=== PATIENT | female | born 1960 | race Caucasian/White ===

== ENCOUNTER → 2018-09-07 | Outpatient (CLI) | payer BC ==
[~2018-09-07] MED LIST: ADULT SUPPOSIT1 EACH RC; ARTIFICIAL TEA1 EACH OPHTHALMIC; BAYER CHEWABLE81 MG PO; BRILINTA90 MG PO; FLONASE 0.05%50 MCG NASAL; HAIR, SKIN & N1 EAC2 PO; IBUPROFEN 800800 M1 PO; LIPITOR 20 MG T20 M1 PO; LISINOPRIL5 MG PO; LOPRESSOR25 PO; MACROBID 100 M100 M1 PO; MIMVEY 1-0.5 M1 EACH PO; NEXIUM 40 MG CA40 M1 PO; NICOTINE TRANSD14 M1 TRANSDERM; NITROGLYCERIN0.4 MG SUBLING; PRILOSEC40 MG PO; SALONPAS; SUDAFED 12 HOU120 MG PO; SUPHEDRIN30 MG PO; VIACTIV SOFT C1 EACH PO
[2018-09-07 16:59] LABS: CK-MB MASS 1.4 ng/mL (<0.5-3.6); TROPONIN-I LEVEL <0.06 ng/mL (<0.06)
== END ==
LOC: M.LAB 16:20
PROVIDERS: Family Medicine
DX: M25.511 Pain in right shoulder (principal); R07.89 Other chest pain

== ENCOUNTER 2019-06-20 06:40 | Emergency (ER) | payer BC ==
[~2019-06-20] VITALS: Ht 165.1 cm; Wt 84.4 kg
[2019-06-20] MEDS ORDERED: FISH OIL 1,0001 EAC9 PO (06:53)
[2019-06-20] MEDS ORDERED: PROBIOTIC1 EAC7 PO (06:54)
[2019-06-20] MEDS ORDERED: DORYX MPC120 MG PO (06:55)
[2019-06-20 07:00] LABS: ABSOLUTE BASOPHILS 0.1 thou/uL (0.0-0.2); ABSOLUTE EOSINOPHILS 0.1 thou/uL (0.0-0.7); ABSOLUTE LYMPHOCYTES 2.6 thou/uL (0.8-5.3); ABSOLUTE MONOCYTES 0.5 thou/uL (0.0-1.2); ABSOLUTE NEUTROPHILS 2.5 thou/uL (1.6-8.1); EOSINOPHILS 2.6 %; HEMATOCRIT 28.3 % (37.0-47.0); LYMPHOCYTES 44.9 %; MCH 33.6 pg (26.0-34.0); MCHC 35.3 g/dL (28.0-37.0); MCV 95.2 fL (80.0-100.0); MONOCYTES 8.7 %; MPV 8.4 fl. (7.2-11.1); NUCLEATED RBCS 0 /100WBC; PLATELET COUNT* 398 thou/uL (150-400); POLYS 42.8 %; RBC 2.97 mil/uL (4.20-5.00); RDW-CV 15.5 % (10.5-14.5); WBC 5.7 thou/uL (4.0-11.0)
[2019-06-20 07:09] LABS: CALCIUM 9.8 mg/dL (8.5-10.1); CREATININE 0.9 mg/dL (0.6-1.3); POTASSIUM 4.1 mmol/L (3.5-5.1)
[2019-06-20 07:12] LABS: PROTIME 10.3 Seconds (9.20-11.50)
[2019-06-20 07:19] LABS: ALBUMIN 3.4 g/dL (3.4-5.0); TOTAL BILIRUBIN 0.5 mg/dL (<0.1-1.0); TOTAL PROTEIN 7.7 g/dL (6.4-8.2)
[2019-06-20 07:59] LABS: URINE BILIRUBIN NEGATIVE (Negative); URINE BLOOD NEGATIVE (Negative); URINE CLARITY CLEAR; URINE COLOR YELLOW; URINE GLUCOSE-RANDOM NEGATIVE (Negative); URINE KETONES NEGATIVE (Negative); URINE LEUKOCYTES-REFLEX NEGATIVE (Negative); URINE NITRITE-REFLEX NEGATIVE (Negative); URINE PROTEIN NEGATIVE (Negative); URINE SPECIFIC GRAVITY 1.015 (1.005-1.030); URINE UROBILINOGEN 0.2 E.U./dl (0.2-1.0)
--- NOTE | 2019-06-20 09:12 | EKG ---
[place] [address] ELECTROCARDIOGRAM REPORT Name: TASHIA FISH Room: [facility]#: [id number] Admission: 06/20/19 Attend Phys: Discharge: Date of : 64 Report #: [id number] THIS REPORT FOR: //name// [facility] ED Test Date: 2019-06-20 Test Time: 06:48:34 Pat Name: TASHIA FISH Department: Room: Gender: F Nursery Worker: ERNESTINA : 1960 Requested By: Tona Johnston Order Number: [id number] MD: Toro Michaud Measurements Intervals [place] Rate: 87 P: 33 VT: 153 QRS: 51 QRSD: 84 T: 39 QT: 367 QTc: 442 Interpretive Statements Sinus rhythm Compared to ECG 12/25/2013 19:45:31 ST (T wave) deviation no longer present Electronically Signed On 06-20-2019 9:12:05 TELECOM BILLING ANALYST by Toro Michaud [email or web address] <ELECTRONICALLY SIGNED> By: Toro Michaud MD, [facility] 06/20/19911 [phone] Toro Michaud MD, FACC /EPI
[2019-06-20 10:42] VITALS: BP 128/79
== END 2019-06-20 10:43 | disposition home or self-care (01) ==
LOC: M.ERS 06:40
PROVIDERS: Emergency Medicine
DX: J06.9 Acute upper respiratory infection, unspecified (principal); R07.9 Chest pain, unspecified; I10 Essential (primary) hypertension; E78.00 Pure hypercholesterolemia, unspecified; F17.210 Nicotine dependence, cigarettes, uncomplicated; Z98.51 Tubal ligation status; Z95.5 Presence of coronary angioplasty implant and graft; Z88.6 Allergy status to analgesic agent

== ENCOUNTER → 2019-07-26 | Outpatient (CLI) | payer OTHER ==
[~2019-07-26] MED LIST changes: +DORYX MPC120 MG PO; +FISH OIL 1,0001 EAC9 PO; +PROBIOTIC1 EAC7 PO
--- NOTE | ~2019-07-26 | HEMONC ---
[address] [address] HEMATOLOGY ONCOLOGY NOTE Name: TASHIA GARBER Room: [facility]..#: [id number] Admission: 07/26/19 Attend Phys: Juju De La Torre MD Discharge: Date of : 64 Report #: [id number] THIS REPORT FOR: //name// CC: Juju Hillman DATE OF SERVICE: 07/26/2019 PRIMARY CARE PHYSICIAN: Saulo Hillman DO REASON FOR CONSULTATION: Progressive anemia. SUBJECTIVE: This is a 59-year-old female who has been evaluated today because of 2 months' duration of fatigue and progressive shortness of breath with joint aches with no weight loss. The patient denies any epistaxis or vaginal bleeding or blood in the stool. She is scheduled for EGD and colonoscopy tomorrow; however, reviewing her blood count revealed hemoglobin dropped from 9.3-8.9 with a normocytic MCV of 97.5. Her white blood cells and platelet count has been within normal range. No evidence of renal failure or liver failure. The patient denies any other symptoms or events that triggered her progressive symptoms in the last couple of months. She did not have any recent travel. The patient denies any new medications. No prior chemoradiation. REVIEW OF SYSTEMS: All systems were reviewed. It was negative except the above. PAST MEDICAL HISTORY: Hypertension, coronary artery disease, dyslipidemia. PAST SURGICAL HISTORY: PCI with a stent placement in 2013. SOCIAL HISTORY: She used to be an active smoker, 1 pack between the age of 18 and 54. She drinks alcohol occasionally. ALLERGIES: None known allergies. MEDICATIONS: Aspirin 81 mg p.o. daily, Lipitor 40 mg p.o. daily, Nexium 40 mg p.o. daily, losartan 100 mg p.o. daily. PHYSICAL EXAMINATION: VITAL SIGNS: Today, blood pressure is 143/81, pulse is 87, respirations 18, temperature is 99.2, saturations 98% on room air. GENERAL: The patient was sitting in chair. She was not in acute distress. LUNGS: Clear to auscultations bilaterally. HEART: Regular rate and rhythm. S1, S2 within normal limits. ABDOMEN: Soft, nontender, nondistended[place] [address] HEMATOLOGY ONCOLOGY NOTE Name: TASHIA GARBER OSCAR Room: [facility]#: [id number] Admission: 07/26/19 Attend Phys: Juju De La Torre MD Discharge: Date of : 64 Report #: [id number] EXTREMITIES: No edema, no cyanosis, no clubbing. LABORATORY DATA: Most recent labs available today, hemoglobin on 07/06/2019 was 8.9, MCV 99.6, platelets 394, neutrophils 56%. Creatinine 0.73, calcium is 9.2, total bilirubin is 0.5, AST 32, ALT is 42. TSH is 2.62. B12 is 555, folate 6.6. Ferritin is 118, saturation 38%. ASSESSMENT AND PLAN: A 59-year-old female who has been evaluated because of progressive normocytic anemia with no evidence of clinical signs to suggest blood loss. Her nutrition studies including iron, B12 and folate within normal range. Also, her kidney and liver function within normal range. Due to the rapid progressive of her anemia with active symptoms, I would like to rule out any possibilities of myeloid disorder. We will proceed with a bone marrow biopsy. At the same time, we will obtain hemolysis workup, serum protein electrophoresis, immunofixation and free light chain, peripheral blood smear. We will follow up in 2 weeks. By: 1125 1241Juju De La Torre MD /nt
[2019-07-26 11:49] LABS: HEMATOCRIT 27.8 % (37.0-47.0); HEMOGLOBIN 9.7 gm/dL (12.0-15.0); MCH 34.9 pg (26.0-34.0); MCHC 34.9 g/dL (28.0-37.0); MCV 99.9 fL (80.0-100.0); MPV 8.3 fl. (7.2-11.1); NUCLEATED RBCS 0 /100WBC; PLATELET COUNT* 303 thou/uL (150-400); RBC 2.78 mil/uL (4.20-5.00); RDW-CV 16.5 % (10.5-14.5); WBC 3.7 thou/uL (4.0-11.0)
[2019-07-26 12:04] LABS: ALBUMIN 3.8 g/dL (3.4-5.0); CALCIUM 8.6 mg/dL (8.5-10.1); CREATININE 0.9 mg/dL (0.6-1.3); POTASSIUM 4.3 mmol/L (3.5-5.1); TOTAL BILIRUBIN 0.6 mg/dL (<0.1-1.0); TOTAL PROTEIN 7.9 g/dL (6.4-8.2)
[2019-07-26 12:13] LABS: ABSOLUTE EOSINOPHILS 0.1 thou/uL (0.0-0.7); ABSOLUTE LYMPHOCYTES 1.8 thou/uL (0.8-5.3); ABSOLUTE MONOCYTES 0.1 thou/uL (0.0-1.2); ABSOLUTE NEUTROPHILS 1.6 thou/uL (1.6-8.1); ANISOCYTOSIS 1+; PLATELET ESTIMATE ADEQUATE; POIKILOCYTOSIS 1+
[2019-07-26 22:07] LABS: HEMOGLOBIN 9.7 g/dL (11.1-15.9)
== END ==
LOC: M.RTH 10:26
PROVIDERS: Internal Medicine
DX: D50.9 Iron deficiency anemia, unspecified (principal); I10 Essential (primary) hypertension; I25.10 Atherosclerotic heart disease of native coronary artery without angina pectoris; E78.5 Hyperlipidemia, unspecified; Z95.5 Presence of coronary angioplasty implant and graft; Z79.899 Other long term (current) drug therapy; Z88.8 Allergy status to other drugs, medicaments and biological substances

== ENCOUNTER → 2019-08-04 | Outpatient (CLI) | payer OTHER ==
[~2019-08-04] MED LIST changes: +COZAAR 25 MG TA25 M1 PO
== END ==
LOC: M.LAB 15:24
DX: D50.9 Iron deficiency anemia, unspecified (principal)

== ENCOUNTER → 2019-08-09 | Outpatient (CLI) | payer OTHER ==
[~2019-08-09] MED LIST changes: -COZAAR 25 MG TA25 M1 PO
--- NOTE | ~2019-08-09 | HEMONC ---
[address] [address] HEMATOLOGY ONCOLOGY NOTE Name: TASHIA FISH Room: [facility]#: [id number] Admission: 08/09/19 Attend Phys: Juju De La Torre MD Discharge: Date of : 64 Report #: [id number] THIS REPORT FOR: //name// CC: Juju Hillman DATE OF SERVICE: 08/09/2019 DIAGNOSIS: Unexplained anemia. SUBJECTIVE: The patient presented today to discuss her workup. She had no evidence of hemolysis based on her haptoglobin and LDH, which were within normal range. ALEE was negative. There is no evidence of M-spike on her serum protein electrophoresis. After discussion with the patient, reviewing all her labs and due to persistent anemia, I do recommend to obtain a bone marrow biopsy. The patient was hesitant to proceed with that, but after answering all her questions, she decided to proceed with this. REVIEW OF SYSTEMS: All systems were reviewed. It was negative except the above. PAST MEDICAL, SOCIAL, AND FAMILY HISTORY: Unchanged from last visit. PHYSICAL EXAMINATION: VITAL SIGNS: Today, blood pressure is 119/82, pulse is 85, respirations 18, temperature is 97.5, saturation is 98% on room air. GENERAL: The patient was sitting in chair, was not in acute distress. LUNGS: Clear to auscultations bilaterally. HEART: Regular rate and rhythm. S1, S2 within normal limits. ASSESSMENT AND PLAN: A 59-year-old female who is being evaluated today because of unexplained anemia. Her workup was not diagnostic. At this point, I recommend to obtain a bone marrow biopsy. Discussed the procedure for the patient. She will proceed with that next week. By: 1102 1336Juju De La Torre MD /nt
== END ==
LOC: M.RTH 03:20
DX: D64.9 Anemia, unspecified (principal)

== ENCOUNTER → 2019-08-17 | Outpatient (CLI) | payer OTHER ==
[~2019-08-17] VITALS: Ht 157.5 cm; Wt 83.5 kg
[~2019-08-17] MED LIST changes: +COZAAR 25 MG TA25 M1 PO
[2019-08-17 08:51] VITALS: BP 134/80
[2019-08-17 09:21] LABS: HEMATOCRIT 25.4 % (37.0-47.0); MCH 35.7 pg (26.0-34.0); MCHC 35.4 g/dL (28.0-37.0); MPV 9.1 fl. (7.2-11.1); NUCLEATED RBCS 0 /100WBC; PLATELET COUNT* 310 thou/uL (150-400); RBC 2.51 mil/uL (4.20-5.00); RDW-CV 16.1 % (10.5-14.5); WBC 3.8 thou/uL (4.0-11.0)
[2019-08-17 09:24] LABS: APTT 24.6 Seconds (25.0-31.3); PROTIME 10.5 Seconds (9.20-11.50)
[2019-08-17 10:17] LABS: ABSOLUTE EOSINOPHILS 0.1 thou/uL (0.0-0.7); ABSOLUTE LYMPHOCYTES 1.8 thou/uL (0.8-5.3); ABSOLUTE NEUTROPHILS 1.9 thou/uL (1.6-8.1); PLATELET ESTIMATE ADEQUATE
[2019-08-17 10:21] LABS: CALCIUM 8.6 mg/dL (8.5-10.1); CREATININE 0.8 mg/dL (0.6-1.3); POTASSIUM 4.2 mmol/L (3.5-5.1)
[2019-08-17 10:22] VITALS: BP 121/56
[2019-08-17 10:44] VITALS: BP 114/66
[2019-08-17 11:09] VITALS: BP 114/56
--- NOTE | 2019-08-25 17:07 | PATH ---
[address] [address] PATHOLOGY RPT PROCEDURE Name: REBECCA THOMAS Room: [facility]#: [id number] Admission: 08/17/19 Date of : 64 Discharge: Report #: [id number] Path Case #: [id number] [facility] Accession Number: [id number] . 01 Material submitted: . PART A: bone - BONE MARROW BIOPSY PART B: bone - BONE MARROW CLOT PART C: bone - BONE MARROW ASPIRATE SLIDES PART D: bone - PERIPHERAL BLOOD SMEARS PART E: bone - BONE MARROW FLOW . 01 Clinical history: . 59 year old woman with anemia and leukopenia. . 02 Diagnosis: Bone marrow aspirate, biopsy, cell clot and peripheral blood: - Peripheral blood with moderate macrocytic anemia and mild leukopenia. - Hypercellular bone marrow with trilineage hematopoiesis, erythroid hyperplasia, mild dyspoiesis, focal megakaryocyte clustering and no evidence of lymphoma, acute leukemia or plasma cell dyscrasia. - Diffuse mild (2/4+) reticulin fibrosis. - See comment. (CLW/db; 08/23/2019) . . Special studies report received from [facility], [address] [place] [address], [address], [place], [address], on case [id number], labeled with their number [id number] dated 08/19/2019. . Flow Cytometry: Hematologic Neoplasia Assessment . Clinical History Iron deficiency anemia . Indication for Study Evaluation for anemia . Specimen Bone Marrow Aspirate . Viability 84% (7AAD exclusion) . Interpretation Bone Marrow Aspirate: - No evidence for abnormal myeloid maturation or an increased blast population. - No evidence for a B-cell or T-cell lymphoproliferative [place] [address] PATHOLOGY RPT PROCEDURE Name: REBECCA THOMAS Room: [facility]#: [id number] Admission: 08/17/19 Date of : 64 Discharge: Report #: [id number] Path Case #: [id number] Comments Correlation with available clinical, laboratory, and morphologic data is recommended. . Populations Analyzed Myeloid Blasts: 0.8% No significant immunophenotypic abnormalities Lymphocytes: 28% B-cells: 1.8%, polytypic/polyclonal sIg light chain pattern T-cells: no significant abnormalities of the markers tested CD4+ T-cells: 13.3% (including 1.9% CD57+ cells) CD8+ T-cells: 10.1% (including 4.2% CD57+ cells) CD4:CD8: 1.3 NK cells: 1.9% Neutrophilic Cells: 60% No significant abnormalities of the markers tested Monocytic Cells: 4% No significant abnormalities of the markers tested Eosinophils: 5% No relative increase Basophils: 0.6% No relative increase Plasma Cells: 0.1% Few detected; no overt abnormalities of the surface markers tested (plasma cells are typically underrepresented by flow cytometry; cytoplasmic light chains were not assessed) Hematogones: 0.1% Normal B-cell precursors CD45 Negative 1% No significant reactivity with the markers Events/Debris: tested (may represent unlysed red blood cells, erythroid precursors, platelets, debris, etc.) (erythroid precursors may be underrepresented due to sample lysis/processing) . Morphologic Evaluation A slide was reviewed for quality assurance intern purposes only. . Specimen Description Total Cell Yield: 5.08X10 and 6 . Reagent(s) Used CD2, CD3, CD4, CD5, CD7, CD8, CD10, CD11b, CD13, CD14, CD16, CD19, CD20, CD33, CD34, CD38, CD45, CD56, CD57, CD64, CD117, HLA-DR, kappa, lambda . at [facility] [employer] [facility]. Ronald Nieves MD Hematopathologist . . Intended Use Flow cytometry is optimally used to [place] [address] PATHOLOGY RPT PROCEDURE Name: REBECCA THOMAS Room: [facility]#: [id number] Admission: 08/17/19 Date of : 64 Discharge: Report #: [id number] Path Case #: [id number] abnormal populations when they are detected. Negative flow cytometry results do not exclude lymphoma or neoplasia. Possible false negative flow cytometry results may occur in, but are not limited to, the following: neoplastic cells in Hodgkin lymphoma are not typically adequately represented by routine clinical flow cytometry; neoplastic cells may be lost or inadequately represented due to degeneration, sample processing, sampling artifact, or patchy involvement; plasma cells are typically underrepresented by flow cytometry; immature cells/blasts may be underrepresented due to hemodilution; myeloproliferative disorders and low grade myelodysplasia may not have immunophenotypic abnormalities or increased blasts. Correlation with all available clinical, laboratory, and morphologic data is always necessary to assess for the possibility of false negative flow cytometry results and to establish a diagnosis. Each marker in this analysis was used to assess for potential antigenic abnormalities or to evaluate detected abnormalities. . Any image or images that accompany this report are sales and marketing representative images only and should not be used to render a diagnosis. . Disclaimer(s) This test was developed and its performance characteristics determined by [facility] [employer] [facility]. It has not been cleared or approved by the Food and Drug Administration. . Performing Labs This test was performed at [facility] [employer] [facility]. at [address] [place], [address] - Oil Dispatcher: Abdoulaye Romero MD. [facility] is a business unit of [employer] a wholly-owned subsidiary of [facility]. . For inquiries, the physician may contact Lab: [phone] . A complete copy of the report is on file. . Professional services performed by [employer]. at [address], [place] [address]. Technical services performed by [employer]. at [address], [place] [address]. . (CLW:ivone 08/18/2019) . [facility] 08/23/2019 [address] [facility] . 02 Comment: Overall, the bone marrow is hypercellular for the patient's age with trilineage hematopoiesis, erythroid hyperplasia, mild dyspoiesis, [place] [address] PATHOLOGY RPT PROCEDURE Name: REBECCA THOMAS Room: [facility]#: [id number] Admission: 08/17/19 Date of : 64 Discharge: Report #: [id number] Path Case #: [id number] clustered megakaryocytes and no evidence of lymphoma, acute leukemia or plasma cell dyscrasia. Additionally, there is diffuse mild (2/4+) reticulin fibrosis. The significance of this is unclear. While the bone marrow has an overall reactive appearance, a myeloproliferative neoplasm or a mixed myelodysplastic syndrome / myeloproliferative neoplasm cannot be be entirely excluded. The dyspoiesis is mild and does not meet the morphologic criteria for myelodysplasia. Correlation with clinical history, additional laboratory data and cytogenetics is required. (CLW/db; 08/23/2019) . 02 Addendum: . Special studies report received from [facility], [address] [place] [address], [address], [place], [address], on case [id number], labeled with their number [id number], dated 08/25/2019. . Cytogenetic Analysis Report . RESULT: Normal Female Karyotype 46,XX(20) . Specimen Type: Bone Marrow . Indication for Study: Iron deficiency anemia . INTERPRETATION: Cytogenetic analysis revealed no evidence of an acquired clonal abnormality. These results should be interpreted in the context of clinical and histopathologic findings. . See Flow Cytometry report [id number] for further information. . Number of Metaphases Counted: 20 Banding: G-banding Number of Metaphase Cells Analyzed: 20 Band Level: 400 Number of Metaphase Cells Karyotyped: 2 Cultures Established: 24/48 hour unstimulated . at [facility] [employer] [facility]. Shannan Han, PhD, FACMG Director of Clinical Cytogenetics . Disclaimer This Test was performed by [facility] [employer] [facility]. at [address] [place] [address], [address]. [facility] is a business unit of [employer] a wholly-owned subsidiary of [facility] . [place] [address] PATHOLOGY RPT PROCEDURE Name: REBECCA THOMAS Room: [facility]#: [id number] Admission: 08/17/19 Date of : 64 Discharge: Report #: [id number] Path Case #: [id number] Any image(s) that accompany this report is/are a sales and marketing representative image(s) only and should not be used to render a diagnosis. . Based on the resolution of this study, standard cytogenetic methodology does not routinely detect subtle or sub-microscopic rearrangements or low level mosaicism. . A complete copy of the report is on file. . Professional services performed by [employer]. at [address], [place] [address]. Technical services performed by [employer]. at [address], [place] [address]. . (CLW:am 08/25/2019) . . [facility]/08/25/2019 Addendum Electronically Signed by Kamille Franklin MD, Pathologist . 02 Electronically signed: . Kamille Franklin MD, Pathologist NPI- [id number] . 01 Gross description: . A. The specimen is received in formalin, labeled "Rebecca Thomas". No source is listed on the container. The source is listed on the requisition as, "bone biopsy". Received is a single needle core of light venutra bone measuring 1.6 cm in length by 0.3 cm in diameter. The specimen is submitted entirely in cassette A1, following light decalcification. . B. The specimen is received in formalin, labeled "Rebecca Thomas". No source is listed on the container. The source is listed on the requisition as, "clot". Received is blood coagulum measuring 3.1 x 1.5 x 1.4 cm in aggregate dimensions. The specimen is filtered and entirely submitted in cassette B1 through B6. (CAA; 08/17/2019) QA/QA 08/17/2019 1802 Local . 02 Microscopic: . CBC Data (08/17/19): WBC 3,800 /uL, RBC 2.51, hemoglobin 9.0 g/dL, hematocrit 25.4%, MCV 101.0 fL, MCH 35.7 pg, MCHC 35.4 g/dL, RDW 16.1%, and platelet count 310,000 /uL. White blood cell differential: segs 49%, lymphs 47%, monos 1%, and eos 3%. . Peripheral Blood Smear: Cytomorphological examination of the Driver's stained peripheral blood smear confirms the provided data. Red blood cells show moderate macrocytic anemia with mild anisocytosis. No significant poikilocytosis [address] [address] PATHOLOGY RPT PROCEDURE Name: THOMASREBECCA A Room: [facility]#: [id number] Admission: 08/17/19 Date of : 64 Discharge: Report #: [id number] Path Case #: [id number] is identified. White blood cells are mildly decreased in number due to low absolute values of multiple subsets. They are predominantly granulocytes and lymphocytes. Granulocytes are predominantly segmented neutrophils and are without significant dyspoiesis or significant left shift. Lymphocytes are predominantly small, round, and mature appearing with condensed chromatin and scant cytoplasm with admixed large granular lymphocytes and reactive appearing lymphocytes. Plasmacytoid lymphocytes are also noted. On scanning, no markedly atypical lymphoid cells are seen. Monocytes are mature. Platelets are adequate in number and mainly normal in morphology with rare larger platelets noted. . Aspirate Smears: Cytomorphological examination of the Driver's stained aspirate smears show hypercellular spicules present. The overall cellularity is approximately 70%. The myeloid to erythroid ratio is 1.2:1. Full myeloid maturation is identified and is without significant dyspoiesis. Erythroid maturation is mildly dyserythropoietic with irregular nuclear contours, binucleate forms, basophilic stippling and left shifted maturation. In a 500 cell differential, there are 1% blasts (no [place] rods are seen), 45% more differentiated myeloids, 35% erythroid precursors, 12% lymphocytes and 7% plasma cells. Megakaryocytes are proportional in number and both normal and abnormal in morphology with variable sizes and nuclear abnormalities. No lymphoid aggregates or markedly atypical lymphoid cells are seen. Plasma cells are without atypia. Iron stain of the aspirate smear shows 2/4+ iron positivity with spicules present. No ringed sideroblasts are identified. . Core Biopsy and Cell Clot: The decalcified bone marrow core biopsy is adequate. The bone marrow is hypercellular with an overall cellularity of approximately 80%. The myeloid to erythroid ratio is 1:1. Myeloid maturation is without significant dyspoiesis. Erythroid maturation is mildly dyserythropoietic. Megakaryocytes are normal to mildly increased in number and both normal and abnormal in morphology with focal megakaryocyte clustering. A rare interstitial lymphoid aggregate composed of small lymphocytes is noted. No markedly atypical lymphoid cells are seen. Bony trabeculae and blood vessels are unremarkable. The cell clot is predominantly blood and peripheral blood elements with no intact spicules present. . Properly controlled special stains are performed. . Block A1: Iron - 2/4+ iron positivity; Reticulin - Diffuse mild (2/4+) reticulin fibrosis. . Block B1: Iron - 0/4+ iron positivity (blood and peripheral blood elements with no intact spicules). [place] [address] PATHOLOGY RPT PROCEDURE Name: REBECCA THOMAS Room: [facility]#: [id number] Admission: 08/17/19 Date of : 64 Discharge: Report #: [id number] Path Case #: [id number] To confirm the flow cytometry findings and to identify cells in a tissue architectural context, properly controlled immunohistochemical stains are performed. . Block A1: CD20 - Stains scattered B-cells and highlights the lymphoid aggregate; PAX-5 - Stains scattered B-cells; CD3 - Stains scattered T-cells and highlights the lymphoid aggregate; MPO - Confirms the M:E ratio; Glycophorin-A - Confirms the M:E ratio; CD138 - Stains plasma cells that are scattered and in aggregates around blood vessels comprising 5% of the marrow cellularity; [place] and lambda in situ hybridization - Plasma cells are polyclonal. . Flow Cytometry: Flow cytometric immunophenotypic analysis [place] [facility] The diagnosis is "no evidence for abnormal myeloid maturation or an increased blast population, no evidence for a B-cell or T-cell lymphoproliferative disorder." There are 0.8% myeloid blasts. There are 28% lymphocytes. Of the lymphocytes, there are 1.8% polyclonal B-cells. T-cells have a CD4/CD8 ratio of 1.3 and no aberrant T-cell antigen expression. Please see separate flow cytometry [place] [facility] ([id number]). . Cytogenetics: Cytogenetic chromosomal analysis is pending at [facility] ([id number]). . 02 Pathologist provided ICD-10: D64.9, D72.819, D75.89 . 02 CPT . 006721, 252832, 774891, 299452, 471150, 917129, 700834, 149370, 295142, B52781, T52889, Q02519, T93469 Specimen Comment: A courtesy copy of this report has been sent to [phone] Specimen Comment: Report sent to Performed at: 01 [facility] [address] [id number] MD Dannie Shah MD Phone: [phone] Performed at: 02 [place] [id number] [address] [id number] MD [place] Eduardo MD Phone: [phone]
== END | disposition home or self-care (01) ==
LOC: M.INT 08-16 09:00
PROVIDERS: Radiology Diagnostic Radiology
DX: D72.819 Decreased white blood cell count, unspecified (principal); D75.89 Other specified diseases of blood and blood-forming organs; D64.9 Anemia, unspecified; I10 Essential (primary) hypertension; E78.00 Pure hypercholesterolemia, unspecified; Z98.51 Tubal ligation status; Z98.890 Other specified postprocedural states; Z79.899 Other long term (current) drug therapy; Z79.891 Long term (current) use of opiate analgesic; Z87.891 Personal history of nicotine dependence

== ENCOUNTER → 2020-01-05 | Outpatient (CLI) | payer OTHER ==
--- NOTE | 2020-01-05 16:59 | CARDNUC ---
[place] [address] CARDIAC NUCLEAR IMAGING REPORT Name: TASHIA FISH Room: [facility]#: [id number] Admission: 01/05/20 Attend Phys: Irma Gordon Discharge: Date of : 64 Date of Service: 01/05/20 1658 Report #: [id number] THIS REPORT FOR: cc: Saulo Hillman,Saulo Avery,Uriel Alanis MD [facility] ~ APPROVED REPORT Imaging Protocol: Stress Tc-99m/Rest Tc-99m 1 day Study performed: 01/05/2020 08:30:00 Indication: Chest pain Patient Location: Out-Patient Stress Tech: Stacey Chinchilla Stress Nurse: Margaret Sanches RN Ht: 5 ft 2 in Wt: 189 lbs BSA: 1.87 m2 BMI: 34.56 Medical History Medical History: Carotid artery disease, CAD s/p stent, HTN, Hyperlipidemia, CAD s/p DE Medications: asa-81, atorvastatin, losartan, ntg Allergies: b blockers, bupropion, cefdinir, lisinopril, oxycodone Cardiac Risk Factors: Age, Tobacco History (Former), HTN, Hyperlipidemia, FHX of CAD Previous Cardiac Procedures: PCI, Myocardial infarction Exercise History: Physically active Stress Test Details Stress Test: Exercise stress testing was performed using a Paras protocol. HR Max Heart Rate (APMHR): 163 bpm Resting HR: 71 bpm Target HR (85% APMHR): 138 bpm Max HR Achieved: 148 bpm % of APMHR: 90 Recovery HR: 93 bpm BP Resting BP: 117/66 mmHg Max BP: 185/76 mmHg Recovery BP: 115/76 [place] [address] CARDIAC NUCLEAR IMAGING REPORT Name: TASHIA FISH Room: [facility]#: [id number] Admission: 01/05/20 Attend Phys: Irma Gordon Discharge: Date of : 64 Date of Service: 01/05/20 1658 Report #: [id number] ECG Resting ECG: Sinus Rhythm Stress ECG: Sinus Tachycardia ST Change: None Arrhythmia: None Recovery ECG: Sinus Rhythm Recovery ST Change: None Recovery Arrhythmia: None Clinical Reason for Termination: Dyspnea Exercise duration: 8 min sec Exercise capacity: 10.12 METs Overall Exercise Capacity for Age: Normal Functional Aerobic Impairment 91% The patient tolerated standard Paras protocol exercise without significant cardiac symptoms. Stress ECG Conclusion The baseline twelve-lead EKG shows sinus rhythm without significant ST segment or T wave abnormality. EKGs obtained during and post exercise shows sinus rhythm and sinus tachycardia with no significant ST segment or T wave change when compared to baseline. There were no stress-induced arrhythmias. Study Quality Study: Good Artifact: Mild Breast artifact Study Data At rest, the left ventricular ejection fraction was 77%.. Post stress, the left ventricular ejection was 80%.. TID = 0.68. Perfusion Perfusion images obtained at rest and post exercise stress show some mild photopenia involving the mid to distal anterior wall that is less pronounced on post-rest prone imaging. Wall motion in this region is normal. This would suggest breast attenuation artifact. No other significant fixed or reversible defects are identified. Wall Motion Normal left ventricular [place] [address] CARDIAC NUCLEAR IMAGING REPORT Name: TASHIA FISH Room: [facility]#: [id number] Admission: 01/05/20 Attend Phys: Irma Gordon Discharge: Date of : 64 Date of Service: 01/05/20 1658 Report #: [id number] ECG Findings: negative for ischemia Clinical Findings: negative for ischemia Nuclear Findings: negative for ischemia Exercise Capacity: normal Left Ventricular Function: normal Risk Study: low Perfusion images show no defect to suggest ischemia. Photopenia noted in the anterior wall due to breast attenuation artifact. Global LV systolic function is normal. This is a low risk study. <Conclusion> The baseline twelve-lead EKG shows sinus rhythm without significant ST segment or T wave abnormality. EKGs obtained during and post exercise shows sinus rhythm and sinus tachycardia with no significant ST segment or T wave change when compared to baseline. There were no stress-induced arrhythmias. <ELECTRONICALLY SIGNED> By: Uriel Garcia MD, FACC 01/05/20 1658 57 57 Uriel Garcia MD, FACC /INF
== END ==
LOC: M.NUC 08:00
PROVIDERS: ATTEND Internal Medicine
DX: R00.0 Tachycardia, unspecified (principal); I25.10 Atherosclerotic heart disease of native coronary artery without angina pectoris; I10 Essential (primary) hypertension; E78.2 Mixed hyperlipidemia; R07.9 Chest pain, unspecified; R06.00 Dyspnea, unspecified; Z95.5 Presence of coronary angioplasty implant and graft